=== PATIENT | male | born 1995 | race African-American/Black ===

== ENCOUNTER 2021-02-17 10:13 | Inpatient (IN) | payer MEDICAID, OTHER ==
[~2021-02-17] VITALS: Ht 182.9 cm; Wt 70.6 kg
[2021-02-17] MEDS ORDERED: MORPHINE SULFATE 4 MG/ML SYR/VIAL IV ONE (10:30)
[2021-02-17] MEDS ORDERED: ONDANSETRON HCL 4 MG/2 ML VIAL IV ONE (10:30)
[2021-02-17] MEDS ORDERED: SODIUM CHLORIDE 0.9% 1,000 ML IVB ONE (10:30)
[2021-02-17 11:05] LABS: Urine WBC None Seen /hpf (0 - 3)
[2021-02-17 11:10] LABS: Basophils % (auto) 1.4 % (0.0-2.0); Eosinophils # (auto) 0 10 ^3/uL (0-0.8); Lymphocytes # (auto) 1.1 10 ^3/uL (0.4-5.4); Monocytes # (auto) 0.3 10 ^3/uL (0-1.3); Neutrophils # (auto) 2.1 10 ^3/uL (1.6-8.6)
[2021-02-17 11:15] LABS: Basophils # (auto) 0.1 10 ^3/uL (0-0.2); Eosinophils % (auto) 0.2 % (0.0-7.0); Hematocrit 34.2 % (41.0-53.0); Lymphocytes % (auto) 30.3 % (10.0-50.0); Mean Corpuscular Hemoglobin 35.4 pg (28.0-32.0); Mean Corpuscular Hgb Conc. 35.2 g/dL (32.0-36.0); Mean Corpuscular Volume 100.5 fL (80.0-100.0); Monocytes % (auto) 9.3 % (0.0-12.0); Neutrophils % (auto) 58.8 % (37.0-80.0); Nucleated Red Blood Cells % 0.2 %; Platelet Count (auto) 161 10^3/uL (140-450); Red Cell Distribution Width 14.2 % (11.8-14.3); White Blood Cell 3.6 10^3/uL (4.4-10.8)
[2021-02-17 11:22] LABS: Urine Bacteria NONE SEEN /hpf (None Seen); Urine Blood Negative /uL (Negative); Urine Specific Gravity 1.007 (1.001-1.035)
[2021-02-17 11:56] LABS: Albumin 2.8 g/dL (3.4-5.0); Anion Gap 12 (5-15); Blood Urea Nitrogen 6 mg/dL (7-18); Calcium 8.3 mg/dL (8.5-10.1); Carbon Dioxide 23 mmol/L (21-32); Chloride 105 mmol/L (98-107); Glucose 94 mg/dL (74-106); Lipase 75 U/L (73-393); Potassium 3.3 mmol/L (3.5-5.1); Sodium 140 mmol/L (136-145)
[2021-02-17 12:02] LABS: Alanine Aminotransferase 213 U/L (16-61); Alkaline Phosphatase 471 U/L (45-117); Aspartate Aminotransferase 501 U/L (15-37); Bilirubin, Total 2.1 mg/dL (0.2-1.0); GFR African American 305 mL/min; GFR Non-African American 252 mL/min; Total Protein 6.6 g/dL (6.4-8.2)
[2021-02-17] MEDS ORDERED: POTASSIUM EFFERVESENT TAB 25 MEQ ONE (12:13)
[2021-02-17] MEDS ORDERED: POTASSIUM EFFERVESENT TAB 25 MEQ PO ONE (12:15)
[2021-02-17] MEDS ORDERED: NITROGLYCERIN 0.4 MG SL TAB SL PRN ×2 (13:30→22:15)
[2021-02-17] MEDS ORDERED: LACTATED RINGER'S 1,000 ML IV ONE (13:30)
[2021-02-17] MEDS ORDERED: MORPHINE SULF INJ 2 MG/ML SYRINGE 1ML IV PRN ×4 (13:30→22:15)
[2021-02-17] MEDS ORDERED: DIVA500T13 PO (15:11)
[2021-02-17] MEDS ORDERED: ESCI20TA PO (15:11)
[2021-02-17] MEDS ORDERED: QUET400T12 PO (15:11)
[2021-02-17] MEDS ORDERED: ALPR0.5T7 PO (15:11)
[2021-02-17] MEDS: SUCRALFATE 1 GM/10 ML ORAL SUSP PO SCH ×4 (15:30→21:18)
[2021-02-17] MEDS: PANTOPRAZOLE 40 MG TAB PO SCH ×2 (18:51→21:18)
[2021-02-17 19:50] VITALS: BP 146/98
[2021-02-17 22:00] VITALS: BP 146/98
[2021-02-17] MEDS ORDERED: HYDROcodone-ACET 5/325MG TAB PO PRN (22:15)
[2021-02-17] MEDS ORDERED: ONDANSETRON HCL 4 MG/2 ML VIAL IV PRN (22:15)
[2021-02-17] MEDS ORDERED: metroNIDAZOLE 500MG/100ML 100 ML IV ONE (22:15)
[2021-02-17] MEDS ORDERED: DOCUSATE SOD 100 MG CAP PO PRN (22:15)
[2021-02-17] MEDS ORDERED: ALUM & MAG HYDROX-SIMETH LIQ(MAALOX) 30 ML PO PRN (22:15)
[2021-02-17] MEDS ORDERED: cefTRIAXone 1GM/50ML D5W 50 ML IV ONE (22:15)
[2021-02-17] MEDS ORDERED: LORazepam 0.5 MG TAB PO PRN (22:15)
[2021-02-17] MEDS: SOD CHL 0.9%/ KCL 20MEQ 1,000 ML IV SCH (23:40)
[2021-02-17 23:43] LABS: Cholesterol 346 mg/dL (< 200); HDL Cholesterol 39 mg/dL (40-59); Triglycerides 468 mg/dL (< 150)
[2021-02-18 05:00] VITALS: BP 140/88
[2021-02-18] MEDS ORDERED: metroNIDAZOLE 500MG/100ML 100 ML IV SCH (06:00)
[2021-02-18] MEDS: SUCRALFATE 1 GM/10 ML ORAL SUSP PO SCH ×2 (06:10→11:30)
[2021-02-18] MEDS: SOD CHL 0.9%/ KCL 20MEQ 1,000 ML IV SCH (06:35)
[2021-02-18 07:49] LABS: Basophils # (auto) 0 10 ^3/uL (0-0.2); Basophils % (auto) 0.8 % (0.0-2.0); Eosinophils # (auto) 0 10 ^3/uL (0-0.8); Eosinophils % (auto) 0.6 % (0.0-7.0); Hemoglobin 11.5 g/dL (13.5-17.5); Lymphocytes # (auto) 1.6 10 ^3/uL (0.4-5.4); Neutrophils # (auto) 2.3 10 ^3/uL (1.6-8.6)
[2021-02-18 07:51] LABS: Hematocrit 33.5 % (41.0-53.0); Lymphocytes % (auto) 37.1 % (10.0-50.0); Mean Corpuscular Hemoglobin 34.9 pg (28.0-32.0); Mean Corpuscular Hgb Conc. 34.4 g/dL (32.0-36.0); Mean Corpuscular Volume 101.3 fL (80.0-100.0); Monocytes # (auto) 0.3 10 ^3/uL (0-1.3); Monocytes % (auto) 7.5 % (0.0-12.0); Nucleated Red Blood Cells % 0.3 %; Platelet Count (auto) 157 10^3/uL (140-450); Red Cell Distribution Width 13.8 % (11.8-14.3); White Blood Cell 4.2 10^3/uL (4.4-10.8)
[2021-02-18 08:00] VITALS: BP 143/103
[2021-02-18 08:01] LABS: INR 1.16 (0.9-1.15)
[2021-02-18 08:21] LABS: Alanine Aminotransferase 188 U/L (16-61); Albumin 2.4 g/dL (3.4-5.0); Anion Gap 8 (5-15); Blood Urea Nitrogen 3 mg/dL (7-18); Calcium 7.5 mg/dL (8.5-10.1); Carbon Dioxide 27 mmol/L (21-32); Chloride 104 mmol/L (98-107); Glucose 85 mg/dL (74-106); Magnesium 1.6 mg/dL (1.6-2.6); Potassium 3.6 mmol/L (3.5-5.1); Sodium 139 mmol/L (136-145)
[2021-02-18 08:26] LABS: Alkaline Phosphatase 433 U/L (45-117); Aspartate Aminotransferase 427 U/L (15-37); BUN/Creatinine Ratio 5.8; Bilirubin, Total 2.6 mg/dL (0.2-1.0); GFR African American 245 mL/min; GFR Non-African American 203 mL/min; Phosphorus 2.7 mg/dL (2.5-4.90); Total Protein 5.8 g/dL (6.4-8.2)
[2021-02-18 09:00] VITALS: BP 143/103
[2021-02-18] MEDS ORDERED: cefTRIAXone 1GM/50ML D5W 50 ML IV SCH (09:00)
[2021-02-18] MEDS: PANTOPRAZOLE 40 MG TAB PO SCH (09:34)
[2021-02-18] MEDS: ENOXAPARIN SOD 40 MG/0.4 ML SYRINGE SC SCH ×2 (09:35→10:00)
[2021-02-18] MEDS ORDERED: GADOTERATE MEG 7.5 MMOL/15ml INJ (0.5MMOL/ml) IV ONE (11:29)
[2021-02-18 11:51] LABS: Urine Bacteria NONE SEEN /hpf (None Seen); Urine Blood Negative /uL (Negative); Urine Specific Gravity 1.018 (1.001-1.035); Urine WBC 3 /hpf (0 - 3)
[2021-02-18] MEDS ORDERED: FOLIC ACID 1 MG, MULTIPLE VITAMIN 10 ML, MAGNESIUM SULF SDV 50% 8 MEQ, THIAMINE INJ 100... INJ ONE ×5 (12:00)
[2021-02-18 12:13] LABS: Amphetamine Screen, Urine NEGATIVE (NEGATIVE); Barbiturate Scree,Urine NEGATIVE (NEGATIVE); Benzodiazephine Screen, Urine NEGATIVE (NEGATIVE); Opiate Scree,Urine NEGATIVE (NEGATIVE); Phencyclidine Screen, Urine NEGATIVE (NEGATIVE)
[2021-02-18 12:36] LABS: Cannabinoid Screen, Urine POSITIVE (NEGATIVE); Cocaine Screen, Urine POSITIVE (NEGATIVE)
[2021-02-18] MEDS ORDERED: QUEtiapine FUMARATE 100 MG TAB PO SCH (22:00)
[2021-02-20 12:27] LABS: Hepatitis A Ab IgM Negative; Hepatitis B Core IgM Negative; Hepatitis C Antibody Negative (Negative)
[2021-02-20 12:28] LABS: Hepatitis B Surface Antigen Negative (Negative)
== END 2021-02-18 11:25 | disposition left against medical advice (07) | DRG 207 ==
LOC: ER 10:13 → TELE 13:29 → TELE-WESTW 19:50 → TELE 19:50 → TELE-WESTW 20:45
PROVIDERS: ADMIT Hospitalist; ATTEND Hospitalist
DX: D18.00 Hemangioma unspecified site (principal); E43 Unspecified severe protein-calorie malnutrition; K70.10 Alcoholic hepatitis without ascites; K92.0 Hematemesis; K76.0 Fatty (change of) liver, not elsewhere classified; Z20.822 Contact with and (suspected) exposure to COVID-19; D64.9 Anemia, unspecified; Z53.29 Procedure and treatment not carried out because of patient's decision for other reasons; F19.10 Other psychoactive substance abuse, uncomplicated; E87.6 Hypokalemia; Y90.9 Presence of alcohol in blood, level not specified; F10.10 Alcohol abuse, uncomplicated; K29.00 Acute gastritis without bleeding; Z79.899 Other long term (current) drug therapy
CPT/HCPCS: 36415; 71046; 74176; 74183; 76705; 80053; 80061; 80074; 80307; 81001; 82306; 82728; 83036; 83690; 83735; 83880; 84100; 84443; 84484; 85025; 85610; 87040; 87086; 87426; 93005; 96365; 96375; G0378; J0696; J2405; J3490

== ENCOUNTER 2021-10-28 20:05 | Emergency (ER) | payer MEDICAID ==
[~2021-10-28] VITALS: Ht 182.9 cm; Wt 68.0 kg
[~2021-10-28 20:05] MED LIST: ALPR0.5T7 PO; DIVA500T13 PO; ESCI20TA PO; QUET400T13 PO
[2021-10-28] MEDS ORDERED: SODIUM CHLORIDE 0.9% 1,000 ML IV ONE (20:30)
[2021-10-28] MEDS ORDERED: KETOROLAC TROMETH 30 MG/ML 1ML VIAL IV ONE (20:30)
[2021-10-28 21:47] LABS: Basophils # (auto) 0 10 ^3/uL (0-0.2); Basophils % (auto) 0.6 % (0.0-2.0); Eosinophils # (auto) 0 10 ^3/uL (0-0.8); Eosinophils % (auto) 0.5 % (0.0-7.0); Hematocrit 43.2 % (41.0-53.0); Hemoglobin 14.6 g/dL (13.5-17.5); Lymphocytes # (auto) 1.9 10 ^3/uL (0.4-5.4); Lymphocytes % (auto) 54.5 % (10.0-50.0); Mean Corpuscular Hemoglobin 32.7 pg (28.0-32.0); Mean Corpuscular Hgb Conc. 33.8 g/dL (32.0-36.0); Mean Corpuscular Volume 96.7 fL (80.0-100.0); Monocytes # (auto) 0.3 10 ^3/uL (0-1.3); Monocytes % (auto) 9.1 % (0.0-12.0); Neutrophils # (auto) 1.2 10 ^3/uL (1.6-8.6); Neutrophils % (auto) 35.3 % (37.0-80.0); Red Blood Cells 4.46 10^6/uL (4.5-5.90); Red Cell Distribution Width 14.1 % (11.8-14.3); White Blood Cell 3.4 10^3/uL (4.4-10.8)
[2021-10-28 22:03] LABS: Albumin 4.3 g/dL (3.4-5.0); Calcium 9.5 mg/dL (8.5-10.1); Potassium 3.6 mmol/L (3.5-5.1)
[2021-10-28 22:07] LABS: BUN/Creatinine Ratio 6.3; Total Protein 8.3 g/dL (6.4-8.2)
[2021-10-29 03:11] VITALS: BP 133/93
== END 2021-10-29 05:35 | disposition home or self-care (01) ==
LOC: ER 20:06
DX: F10.129 Alcohol abuse with intoxication, unspecified (principal); R10.84 Generalized abdominal pain; F12.10 Cannabis abuse, uncomplicated; Y90.8 Blood alcohol level of 240 mg/100 ml or more
CPT/HCPCS: 36415; 80053; 80320; 85025; 96361; 96374; 99283; J1885; J7030

== ENCOUNTER 2021-12-22 13:39 | Emergency (ER) | payer MEDICAID, OTHER ==
[~2021-12-22] VITALS: Ht 182.9 cm; Wt 72.6 kg
[2021-12-22] MEDS ORDERED: KETOROLAC TROMETH 60MG/2ML VIAL IM ONE (14:00)
[2021-12-22 14:37] VITALS: BP 155/106
[2021-12-22] MEDS ORDERED: METH750T22 PO (15:06)
[2021-12-22] MEDS ORDERED: IBUP800T27 PO (15:06)
== END 2021-12-22 15:25 | disposition home or self-care (01) ==
LOC: EDBD 13:39 → ER 13:39
DX: S16.1XXA Strain of muscle, fascia and tendon at neck level, initial encounter (principal); S39.012A Strain of muscle, fascia and tendon of lower back, initial encounter; S93.401A Sprain of unspecified ligament of right ankle, initial encounter; Z79.899 Other long term (current) drug therapy; V49.9XXA Car occupant (driver) (passenger) injured in unspecified traffic accident, initial encounter; Y93.89 Activity, other specified; Y92.410 Unspecified street and highway as the place of occurrence of the external cause; Y99.8 Other external cause status
CPT/HCPCS: 72040; 72100; 73030; 73610; 96372; 99284; J1885

== ENCOUNTER 2022-04-16 18:41 | Emergency (ER) | payer MEDICAID ==
[~2022-04-16] VITALS: Ht 182.9 cm; Wt 72.6 kg
[~2022-04-16 18:41] MED LIST changes: +IBUP800T27 PO; +METH750T22 PO
[2022-04-16 18:59] VITALS: BP 155/100
== END 2022-04-16 22:05 | disposition left against medical advice (07) ==
LOC: ER 18:53
DX: R04.0 Epistaxis (principal); Z53.21 Procedure and treatment not carried out due to patient leaving prior to being seen by health care provider

== ENCOUNTER 2022-04-16 21:56 | Emergency (ER) | payer MEDICAID ==
[~2022-04-16] VITALS: Ht 188 cm; Wt 72.6 kg
[2022-04-16 22:00] VITALS: BP 153/117
== END 2022-04-17 02:59 | disposition left against medical advice (07) ==
LOC: EDBD 21:56 → ER 21:56
DX: R04.0 Epistaxis (principal); Z53.21 Procedure and treatment not carried out due to patient leaving prior to being seen by health care provider

== ENCOUNTER 2023-04-25 11:17 | Inpatient (IN) | payer MEDICAID ==
[~2023-04-25] VITALS: Ht 182.9 cm; Wt 63.5 kg
[~2023-04-25 11:17] MED LIST changes: +IBUP-1456 PO; -IBUP800T27 PO; +METH-1182 PO; -METH750T22 PO
[2023-04-25 11:43] LABS: Basophils # (auto) 0 10 ^3/uL (0-0.2); Basophils % (auto) 0.1 % (0.0-2.0); Eosinophils # (auto) 0 10 ^3/uL (0-0.8); Hematocrit 49.3 % (41.0-53.0); Hemoglobin 16.8 g/dL (13.5-17.5); Lymphocytes % (auto) 8.9 % (10.0-50.0); Mean Corpuscular Hemoglobin 32.4 pg (28.0-32.0); Mean Corpuscular Volume 95.3 fL (80.0-100.0); Neutrophils # (auto) 9.2 10 ^3/uL (1.6-8.6); Nucleated Red Blood Cells % 0.1 %; Red Blood Cells 5.18 10^6/uL (4.5-5.90); White Blood Cell 11.2 10^3/uL (4.4-10.8)
[2023-04-25] MEDS ORDERED: SODIUM CHLORIDE 0.9% 500 ML IV ONE (12:00)
[2023-04-25 12:02] LABS: Albumin 4.5 g/dL (3.4-5.0); Potassium 3.6 mmol/L (3.5-5.1)
[2023-04-25 12:06] LABS: BUN/Creatinine Ratio 7.5 (10.0-20.0); Calcium 9.8 mg/dL (8.5-10.1)
[2023-04-25] MEDS ORDERED: IOHEXOL 300 MG/ML 100ML BOTTLE IJ ONE (12:57)
[2023-04-25] MEDS ORDERED: fentaNYL CITRATE 100 MCG/2 ML VL IV ONE (13:00)
[2023-04-25] MEDS ORDERED: PIPERACILLIN-TAZOB 3.375GM 100 ML IV ONE (13:00)
[2023-04-25] MEDS ORDERED: SODIUM CHLORIDE 0.9% 1,000 ML IV ONE ×2 (14:15)
[2023-04-25] MEDS ORDERED: KETOROLAC TROMETH 30 MG/ML 1ML VIAL IV ONE (14:15)
[2023-04-25] MEDS ORDERED: ONDANSETRON HCL 4 MG/2 ML VIAL IV PRN (14:30)
[2023-04-25] MEDS ORDERED: ACETAMINOPHEN 325 MG TAB PO PRN (14:30)
[2023-04-25] MEDS ORDERED: PANTOPRAZOLE 40 MG/10 ML VIAL INJ IV ONE (14:45)
[2023-04-25 15:30] LABS: Urine Bacteria NONE SEEN /hpf (None Seen); Urine Blood Negative /uL (Negative); Urine Hyaline Cast FEW /lpf (0 - 2); Urine Mucus FEW (None Seen); Urine Specific Gravity 1.036 (1.001-1.035); Urine WBC 3 /hpf (0 - 3)
[2023-04-25 15:57] LABS: Amphetamine Screen, Urine NEGATIVE (NEGATIVE); Barbiturate Scree,Urine NEGATIVE (NEGATIVE); Benzodiazephine Screen, Urine POSITIVE (NEGATIVE); Cannabinoid Screen, Urine POSITIVE (NEGATIVE); Cocaine Screen, Urine POSITIVE (NEGATIVE); Opiate Scree,Urine NEGATIVE (NEGATIVE); Phencyclidine Screen, Urine NEGATIVE (NEGATIVE)
[2023-04-25] MEDS: HYDROcodone-ACET 5/325MG TAB PO PRN ×2 (17:29→22:31)
[2023-04-25] MEDS: KETOROLAC TROMETH 30 MG/ML 1ML VIAL IV PRN (19:45)
[2023-04-25] MEDS: PIPERACILLIN-TAZOB 3.375GM 100 ML IV SCH (19:46)
[2023-04-25] MEDS: hydrALAZINE HCL 20 MG/ML VL IV PRN (22:24)
[2023-04-25] MEDS: QUEtiapine FUMARATE 100 MG TAB PO SCH (22:31)
[2023-04-25] MEDS: METHOCARBAMOL 500 MG TAB PO SCH (22:32)
[2023-04-25 23:59] VITALS: BP 175/126
[2023-04-26] MEDS: PIPERACILLIN-TAZOB 3.375GM 100 ML IV SCH ×5 (00:48→20:49)
[2023-04-26] MEDS: KETOROLAC TROMETH 30 MG/ML 1ML VIAL IV PRN ×4 (01:56→22:56)
[2023-04-26 05:00] VITALS: BP 152/97
[2023-04-26] MEDS: HYDROcodone-ACET 5/325MG TAB PO PRN ×3 (05:00→20:45)
[2023-04-26] MEDS: hydrALAZINE HCL 20 MG/ML VL IV PRN ×2 (05:10→09:08)
[2023-04-26 06:47] LABS: Basophils # (auto) 0 10 ^3/uL (0-0.2); Basophils % (auto) 0.1 % (0.0-2.0); Eosinophils # (auto) 0 10 ^3/uL (0-0.8); Hemoglobin 13.6 g/dL (13.5-17.5); Lymphocytes # (auto) 0.7 10 ^3/uL (0.4-5.4); Lymphocytes % (auto) 8.2 % (10.0-50.0); Mean Corpuscular Hemoglobin 32.8 pg (28.0-32.0); Mean Corpuscular Hgb Conc. 34.9 g/dL (32.0-36.0); Mean Corpuscular Volume 93.9 fL (80.0-100.0); Monocytes # (auto) 1.1 10 ^3/uL (0-1.3); Monocytes % (auto) 12.3 % (0.0-12.0); Neutrophils # (auto) 7.3 10 ^3/uL (1.6-8.6); Neutrophils % (auto) 79.4 % (37.0-80.0); Red Blood Cells 4.15 10^6/uL (4.5-5.90); Red Cell Distribution Width 15.2 % (11.8-14.3); White Blood Cell 9.1 10^3/uL (4.4-10.8)
[2023-04-26 07:00] LABS: Alanine Aminotransferase 91 U/L (16-61); Albumin 3.1 g/dL (3.4-5.0); Anion Gap 11 (5-15); Aspartate Aminotransferase 73 U/L (15-37); BUN/Creatinine Ratio 8.2 (10.0-20.0); Blood Urea Nitrogen 6 mg/dL (7-18); Calcium 8.9 mg/dL (8.5-10.1); Carbon Dioxide 22 mmol/L (21-32); Chloride 97 mmol/L (98-107); GFR African American 163 mL/min; GFR Non-African American 135 mL/min; Glucose 211 mg/dL (74-106); Potassium 3.1 mmol/L (3.5-5.1); Sodium 130 mmol/L (136-145)
[2023-04-26] MEDS: PATIENTS OWN MEDICATION (Escitalopram Oxalate (Lexapro) 1 TAB) PO SCH (07:00)
[2023-04-26 07:03] LABS: Alkaline Phosphatase 416 U/L (45-117); Bilirubin, Total 0.9 mg/dL (0.2-1.0); Total Protein 7.6 g/dL (6.4-8.2)
[2023-04-26 09:00] VITALS: BP_SYST 147; BP_SYST 161; BP_DIAS 63; BP_DIAS 71
[2023-04-26] MEDS: ENOXAPARIN SOD 40 MG/0.4 ML SYRINGE SC SCH (09:09)
[2023-04-26] MEDS: PANTOPRAZOLE 40 MG TAB PO SCH (09:20)
[2023-04-26] MEDS: ALPRAZolam 0.5 MG TAB PO SCH (09:21)
[2023-04-26] MEDS: METHOCARBAMOL 500 MG TAB PO SCH ×2 (09:21→21:10)
[2023-04-26] MEDS ORDERED: PANTOPRAZOLE 40 MG/10 ML VIAL INJ IV SCH (10:00)
[2023-04-26] MEDS: cloNIDine HCL 0.1 MG TAB PO PRN ×2 (11:55→17:01)
[2023-04-26 13:12] VITALS: BP 165/115
[2023-04-26 17:00] VITALS: BP 159/100
[2023-04-26] MEDS: QUEtiapine FUMARATE 100 MG TAB PO SCH (21:09)
[2023-04-26 22:00] VITALS: BP 146/103
[2023-04-27] VITALS (8 sets, daily range): BP systolic 85–147; BP diastolic 31–101
[2023-04-27] MEDS: HYDROcodone-ACET 10/325MG TAB PO PRN ×2 (02:53→07:52)
[2023-04-27] MEDS: METHOCARBAMOL 500 MG TAB PO SCH ×3 (02:54→22:00)
[2023-04-27] MEDS: PIPERACILLIN-TAZOB 3.375GM 100 ML IV SCH ×4 (02:57→21:29)
[2023-04-27] MEDS: PATIENTS OWN MEDICATION (Escitalopram Oxalate (Lexapro) 1 TAB) PO SCH (05:54)
[2023-04-27] MEDS: PANTOPRAZOLE 40 MG TAB PO SCH (10:34)
[2023-04-27] MEDS: ALPRAZolam 0.5 MG TAB PO SCH (10:34)
[2023-04-27] MEDS: ENOXAPARIN SOD 40 MG/0.4 ML SYRINGE SC SCH (10:35)
[2023-04-27] MEDS: KETOROLAC TROMETH 30 MG/ML 1ML VIAL IV PRN (10:42)
[2023-04-27] MEDS ORDERED: MORPHINE SULFATE INJ 2 MG/ml SYRG IV PRN ×2 (13:00)
[2023-04-27] MEDS ORDERED: NITROGLYCERIN 0.4 MG SL TAB SL PRN ×2 (13:00)
[2023-04-27] MEDS ORDERED: SODIUM CHLORIDE 0.9% 1,000 ML IV ONE (13:00)
[2023-04-27] MEDS ORDERED: SODIUM CHLOR 0.9% PF (SALINE LOCK) 10ML VIAL/SYR IV SCH (14:00)
[2023-04-28] MEDS: PIPERACILLIN-TAZOB 3.375GM 100 ML IV SCH (02:51)
[2023-04-28 05:00] VITALS: BP 113/76
[2023-04-28 08:00] VITALS: BP 126/96
[2023-04-29 17:23] LABS: Hepatitis A Total Antibody Positive (Negative)
[2023-04-29 20:19] LABS: Hepatitis B Surface Antibody Negative (Negative); Hepatitis C Antibody Negative (Negative)
== END 2023-04-28 09:38 | disposition home or self-care (01) | DRG 282 ==
LOC: ER 11:17 → OVERFLOW 14:22 → CENTRAL 21:33 → TELE-CENTR 04-27 13:00
PROVIDERS: ADMIT Nurse Practitioner Family; ATTEND Family Medicine
DX: K85.90 Acute pancreatitis without necrosis or infection, unspecified (principal); F14.10 Cocaine abuse, uncomplicated; I10 Essential (primary) hypertension; K21.9 Gastro-esophageal reflux disease without esophagitis; F20.9 Schizophrenia, unspecified; F32.A Depression, unspecified
CPT/HCPCS: 36415; 74177; 76705; 80053; 80307; 81001; 83605; 83690; 84484; 85025; 86704; 86706; 86708; 86803; 87340; 93005; 96361; 96365; 96375; 99291; C9113; G0378; J1885; J2405; J2543

== ENCOUNTER 2024-02-05 11:55 | Emergency (ER) | payer MEDICAID ==
[~2024-02-05] VITALS: Ht 182.9 cm; Wt 60.0 kg
[2024-02-05 15:00] LABS: Basophils # (auto) 0 10 ^3/uL (0-0.2); Basophils % (auto) 0.4 % (0.0-2.0); Eosinophils # (auto) 0 10 ^3/uL (0-0.8); Eosinophils % (auto) 0.3 % (0.0-7.0); Hemoglobin 15.6 g/dL (13.5-17.5); Lymphocytes # (auto) 1.5 10 ^3/uL (0.4-5.4); Lymphocytes % (auto) 23.2 % (10.0-50.0); Mean Corpuscular Hemoglobin 32.2 pg (28.0-32.0); Mean Corpuscular Hgb Conc. 33.9 g/dL (32.0-36.0); Monocytes # (auto) 0.5 10 ^3/uL (0-1.3); Monocytes % (auto) 8.2 % (0.0-12.0); Neutrophils # (auto) 4.3 10 ^3/uL (1.6-8.6); Neutrophils % (auto) 67.9 % (37.0-80.0); Nucleated Red Blood Cells % 0.1 %; Red Blood Cells 4.84 10^6/uL (4.5-5.90); Red Cell Distribution Width 14.1 % (11.8-14.3); White Blood Cell 6.4 10^3/uL (4.4-10.8)
[2024-02-05] MEDS: DICYCLOMINE HCL (10MG/ML) 2 ML AMPULE IM ONE (15:16)
[2024-02-05] MEDS: ONDANSETRON ODT 4 MG TAB PO ONE (15:16)
[2024-02-05 15:17] LABS: Alanine Aminotransferase 65 U/L (7-40); Albumin 4.8 g/dL (3.2-4.8); Alkaline Phosphatase 438 U/L (46-116); Anion Gap 10 (5-15); Aspartate Aminotransferase 90 U/L (13-40); Bilirubin, Direct 0.5 mg/dL (<0.3); Carbon Dioxide 28 mmol/L (20-30); Chloride 96 mmol/L (98-107); Glucose 101 mg/dL (74-106); Potassium 3.3 mmol/L (3.5-5.1); Sodium 134 mmol/L (136-145); Total Protein 7.6 g/dL (5.7-8.2)
[2024-02-05] MEDS: KETOROLAC TROMETH 60MG/2ML VIAL IM ONE (15:17)
[2024-02-05 15:27] LABS: Blood Urea Nitrogen < 5 mg/dL (9-23)
[2024-02-05 15:39] LABS: Lipase 148 U/L (12-53)
[2024-02-05] MEDS ORDERED: POTASSIUM CHL 20MEQ/100ML 100 ML IV ONE (15:45)
[2024-02-05] MEDS: SODIUM CHLORIDE 0.9% 1,000 ML IV ONE (17:04)
[2024-02-05] MEDS: PIPERACILLIN-TAZO 4.5GM 100 ML IV ONE (17:15)
[2024-02-05 19:30] VITALS: BP 161/111; PULSE 80; RESP 16; TEMP 98.8; O2SAT 100
[2024-02-05] MEDS: MORPHINE SULFATE 4 MG/ML SYR/VIAL IV ONE (19:30)
[2024-02-05] MEDS: POTASSIUM EFFERVESENT TAB 25 MEQ PO ONE (19:52)
== END 2024-02-05 19:48 | disposition short-term general hospital (02) ==
LOC: EDBD 11:55 → ER 11:55
DX: K85.90 Acute pancreatitis without necrosis or infection, unspecified (principal); E86.0 Dehydration; E87.6 Hypokalemia; R74.01 Elevation of levels of liver transaminase levels; K80.50 Calculus of bile duct without cholangitis or cholecystitis without obstruction; F12.10 Cannabis abuse, uncomplicated
CPT/HCPCS: 36415; 76705; 80048; 80076; 83690; 85025; 96361; 96372; 96374; 99285; J0500; J1885; J2270; J7030; Q0162; J2543